=== PATIENT | female | born 2000 | race Caucasian/White ===

== ENCOUNTER → 2023-12-28 17:41 | Outpatient (REF) | payer BC, SELFPAY | LOC: CLAB 17:41 | PROVIDERS: ATTENDING PHYSICIAN Advanced Practice Midwife | DX: Z01.419 Encounter for gynecological examination (general) (routine) without abnormal findings (principal); Z12.4 Encounter for screening for malignant neoplasm of cervix | CPT/HCPCS: G0123 ==